=== PATIENT | male | born 1960 | race Caucasian/White ===

== ENCOUNTER → 2021-02-26 | Outpatient (CLI) | payer MEDICARE ==
[~2021-02-26] MED LIST: FLORASTOR250 MG PO; K-DUR TAB 20 M20 MEQ PO; ONDANSETRON ODT4 MG PO
== END ==
LOC: RAD 11:35
DX: M25.522 Pain in left elbow (principal); M25.422 Effusion, left elbow
CPT/HCPCS: 73080

== ENCOUNTER 2021-06-17 16:33 | Inpatient (IN) | payer MEDICARE ==
[~2021-06-17] VITALS: Ht 167.6 cm; Wt 72.6 kg
[2021-06-17 17:46] LABS: HEMOGLOBIN 13.1 gm/dl (14.0-17.5); RED BLOOD COUNT 4.36 M/UL (4.20-5.50); WHITE BLOOD COUNT 5.5 K/UL (4.5-11.0)
[2021-06-17 18:14] LABS: BUN/CREATININE RATIO 30 (0-10)
[2021-06-17 18:25] LABS: BORDETELLA PARAPERTUSSIS Not Detected (Not Detectd); BORDETELLA PERTUSSIS Not Detected (Not Detectd); CHLAMYDIA PNEUMONIAE Not Detected (Not Detectd); CORONAVIRUS HKU1 Not Detected (Not Detectd); CORONAVIRUS NL63 Not Detected (Not Detectd); CORONAVIRUS OC43 Not Detected (Not Detectd); CORONOAVIRUS 229E Not Detected (Not Detectd); HUMAN METAPNEUMOVIRUS Not Detected (Not Detectd); HUMAN RHINOVIRUS/ENTEROVIRUS Not Detected (Not Detectd); INFLUENZA A Not Detected (Not Detectd); INFLUENZA B Not Detected (Not Detectd); MYCOPLASMA PNEUMONIAE Not Detected (Not Detectd); PARAINFLUENZA VIRUS 1 Not Detected (Not Detectd); PARAINFLUENZA VIRUS 2 Not Detected (Not Detectd); PARAINFLUENZA VIRUS 3 Not Detected (Not Detectd); PARAINFLUENZA VIRUS 4 Not Detected (Not Detectd); RESPIRATORY SYNCYTIAL VIRUS Not Detected (Not Detectd)
[2021-06-17 21:48] LABS: SARS-CoV-2 DETECTED (Not Detectd)
[2021-06-18 04:25] LABS: HEMOGLOBIN 12.1 gm/dl (14.0-17.5); RED BLOOD COUNT 4.12 M/UL (4.20-5.50); WHITE BLOOD COUNT 4.6 K/UL (4.5-11.0)
[2021-06-18 04:49] LABS: BUN/CREATININE RATIO 22 (0-10)
[2021-06-18] MEDS ORDERED: WELLBUTRIN XL300 M1 PO (10:55)
[2021-06-18] MEDS ORDERED: ESCITALOPRAM OX20 MG PO (10:57)
[2021-06-18] MEDS ORDERED: COZAAR 50MG TAB50 MG PO (10:59)
[2021-06-18] MEDS ORDERED: METOPROLOL SUC100 MG PO (11:03)
[2021-06-18] MEDS ORDERED: NEXIUM40 MG PO (12:44)
[2021-06-18] MEDS ORDERED: TYLENOL325 MG PO (12:44)
[2021-06-19 07:18] LABS: HEMOGLOBIN 12.3 gm/dl (14.0-17.5); RED BLOOD COUNT 4.19 M/UL (4.20-5.50); WHITE BLOOD COUNT 3.6 K/UL (4.5-11.0)
[2021-06-19 07:45] LABS: BUN/CREATININE RATIO 23 (0-10)
[2021-06-20 05:34] LABS: HEMOGLOBIN 12.4 gm/dl (14.0-17.5); RED BLOOD COUNT 4.25 M/UL (4.20-5.50)
[2021-06-20 05:35] LABS: WHITE BLOOD COUNT 5.5 K/UL (4.5-11.0)
[2021-06-20 05:54] LABS: BUN/CREATININE RATIO 28 (0-10)
[2021-06-21 05:30] LABS: HEMOGLOBIN 12.5 gm/dl (14.0-17.5); RED BLOOD COUNT 4.28 M/UL (4.20-5.50); WHITE BLOOD COUNT 5.4 K/UL (4.5-11.0)
[2021-06-21 05:41] LABS: BUN/CREATININE RATIO 29 (0-10)
[2021-06-22 05:39] LABS: HEMOGLOBIN 12.6 gm/dl (14.0-17.5); RED BLOOD COUNT 4.39 M/UL (4.20-5.50)
[2021-06-22 06:01] LABS: BUN/CREATININE RATIO 33 (0-10)
[2021-06-23 06:45] LABS: RED BLOOD COUNT 4.41 M/UL (4.20-5.50); WHITE BLOOD COUNT 11.2 K/UL (4.5-11.0)
[2021-06-23 07:11] LABS: BUN/CREATININE RATIO 33 (0-10)
[2021-06-24 07:10] LABS: HEMOGLOBIN 13.4 gm/dl (14.0-17.5); RED BLOOD COUNT 4.51 M/UL (4.20-5.50); WHITE BLOOD COUNT 10.9 K/UL (4.5-11.0)
[2021-06-24 07:41] LABS: BUN/CREATININE RATIO 32 (0-10)
[2021-06-25] MEDS ORDERED: IPRAT-ALBUT 0.5-3 ML NEB (09:08)
[2021-06-25] MEDS ORDERED: ELIQUIS 2.5 MG2.5 MG PO (09:08)
[2021-06-25] MEDS ORDERED: DECADRON6 MG PO (09:08)
== END 2021-06-25 13:13 | disposition home or self-care (01) | DRG 177 ==
LOC: ER1 16:33 → CDU 20:32 → M/S 20:32
PROVIDERS: Internal Medicine; Preventive Medicine Occupational Medicine; ADMIT Internal Medicine
PROC: 8E0ZXY6 Isolation (ICD-10-PCS; principal; 2021-06-17)
PROC: XW033E5 Introduction of Remdesivir Anti-infective into Peripheral Vein, Percutaneous Approach, New Technology Group 5 (ICD-10-PCS; 2021-06-17)
PROC: 3E0333Z Introduction of Anti-inflammatory into Peripheral Vein, Percutaneous Approach (ICD-10-PCS; 2021-06-17)
PROC: 5A0945A Assistance with Respiratory Ventilation, 24-96 Consecutive Hours, High Flow/Velocity Cannula (ICD-10-PCS; 2021-06-19)
DX: U07.1 COVID-19 (principal); J12.82 Pneumonia due to coronavirus disease 2019; J96.01 Acute respiratory failure with hypoxia; J15.9 Unspecified bacterial pneumonia; I10 Essential (primary) hypertension; F32.9 Major depressive disorder, single episode, unspecified; K21.9 Gastro-esophageal reflux disease without esophagitis; Z79.01 Long term (current) use of anticoagulants; Z79.4 Long term (current) use of insulin; Z90.49 Acquired absence of other specified parts of digestive tract; Z82.49 Family history of ischemic heart disease and other diseases of the circulatory system; Z83.3 Family history of diabetes mellitus; Z80.9 Family history of malignant neoplasm, unspecified
CPT/HCPCS: 36415; 71045; 80048; 80053; 82550; 82553; 83735; 83874; 83880; 84484; 85025; 85027; 85652; 86140; 87040; 87633; 93005; 94760; 96374; 96375; 99285; J0456; J0696; J1100; J1650; J7030

== ENCOUNTER → 2021-07-08 | Outpatient (CLI) | payer MEDICARE ==
[~2021-07-08] MED LIST changes: +COZAAR 50MG TAB50 MG PO; +DECADRON6 MG PO; +ELIQUIS 2.5 MG2.5 MG PO; +ESCITALOPRAM OX20 MG PO; +IPRAT-ALBUT 0.5-3 ML NEB; +METOPROLOL SUC100 MG PO; +NEXIUM40 MG PO; +TYLENOL325 MG PO; +WELLBUTRIN XL300 M1 PO
== END ==
LOC: RAD 15:42
DX: U07.1 COVID-19 (principal); J12.82 Pneumonia due to coronavirus disease 2019
CPT/HCPCS: 71046

== ENCOUNTER → 2021-08-05 | Outpatient (CLI) | payer MEDICARE | LOC: RAD 13:44 | DX: R06.02 Shortness of breath (principal); Z86.16 Personal history of COVID-19; J18.9 Pneumonia, unspecified organism | CPT/HCPCS: 71046 ==

== ENCOUNTER 2021-09-02 13:02 | Emergency (ER) | payer MEDICARE ==
[2021-09-02 13:44] LABS: HEMOGLOBIN 14.8 gm/dl (14.0-17.5); RED BLOOD COUNT 4.89 M/UL (4.20-5.50); WHITE BLOOD COUNT 6.6 K/UL (4.5-11.0)
[2021-09-02 14:06] LABS: BUN/CREATININE RATIO 18 (0-10)
[2021-09-02] MEDS ORDERED: PREDNISONE 20 M20 MG PO (16:49)
== END 2021-09-02 17:08 | disposition home or self-care (01) ==
LOC: ER1 13:02
PROVIDERS: Nurse Practitioner
DX: U09.9 Post COVID-19 condition, unspecified (principal); R07.89 Other chest pain; I10 Essential (primary) hypertension; K21.9 Gastro-esophageal reflux disease without esophagitis
CPT/HCPCS: 71045; 80053; 81001; 82550; 82553; 83874; 83880; 84484; 85025; 85379; 85610; 93005; 99285; Q9967